=== PATIENT | female | born 1960 | race Caucasian/White ===

== ENCOUNTER → 2023-02-09 11:06 | Outpatient (CLI) | payer OTHER, SELFPAY ==
--- NOTE | ~2023-02-09 | XR_ITS ---
XR knee LT 3V DATE: 02/09/2023 11:31 INDICATION: Left knee pain for one month. No injury. TECHNIQUE: [place], AP and lateral views COMPARISON: None FINDINGS: There is mild periarticular spurring of the patella and mild loss of height of medial rian rtment joint space. No fracture or dislocation or joint effusion, radiopaque intra-articular loose body, chondrocalcinosi s. No periosteal reaction or bone destruction. 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
--- NOTE | ~2023-02-09 | XR_ITS ---
XR hip LT 2V w AP pelvis DATE: 02/09/2023 11:31 INDICATION: Left hip and knee pain for one month. No known injury. TECHNIQUE: AP pelvis. AP and lateral views of the left hip. COMPARISON: None FINDINGS: Bilateral pedicle screws and rods and interbody spinal fusion at L4-5. The pubic symphysis and sacroiliac joints are intact. No pelvic fracture or bone destruction is detec dai. Hip joint spaces appear symmetric and relatively preserved. No fracture, dislocation, avascular necro sis or bone destruction of the left hip is detected. IMPRESSION: Negative left hip Status post posterior and interbody spinal fusion at L4-5 Reviewed, dictated and finalized at location B.
== END ==
DX: M79.605 Pain in left leg (principal); M17.12 Unilateral primary osteoarthritis, left knee; Z98.1 Arthrodesis status
CPT/HCPCS: 73502; 73562